=== PATIENT | male | born 1975 | race American Indian/Alaskan Native ===

== ENCOUNTER 2022-05-22 11:09 | Emergency (ER) | payer SELFPAY ==
[2022-05-22] MEDS ORDERED: KETOROLAC 10 MG TAB PO ONE ×2 (12:05→15:00)
[2022-05-22] MEDS ORDERED: predniSONE 20 MG TAB PO ONE ×2 (12:05→15:00)
--- NOTE | 2022-05-22 12:10 | Emergency Department Report ---
ED ENT HPI - General Chief complaint: Earache Stated complaint: EAR INFECTION Time Seen by Provider: 05/22/22 12:03 Source: patient Mode of arrival: Ambulatory Limitations: No Limitations - History of Present Illness Initial comments: 46-year-old black male with a past medical history of asthma presents to the emergency department for evaluation of few day history of worsening left ear pain. He states that he has pain when he touches his ear and has had drainage from his ear also. MD complaint: ear pain -: Gradual, days(s) (2-3) Location: L ear Severity: severe Severity scale (0 -10): 8 Quality: aching Consistency: constant Worsens with: other (touch) - Related Data Previous Rx's Medication Instructions Recorded Last Taken Type Albuterol Mdi (or & Nicu Only) 2 puff IH QID PRN #1 inhalation 12/01/18 Unknown Rx [ProAir HFA Inhaler] Ciprofloxacin HCl/Dexameth 2 drop OTIC QID #7.5 ml 05/22/22 Unknown Rx [Ciprodex Otic Suspension] Allergies Allergy/AdvReac Type Severity Reaction Status Date / Time sulfamethoxazole Allergy Swelling Verified 12/01/18 11:18 [From Bactrim] trimethoprim [From Bactrim] Allergy Swelling Verified 12/01/18 11:18 ED Dental HPI - General Chief complaint: Earache Stated complaint: EAR INFECTION Time Seen by Provider: 05/22/22 12:03 Source: patient Mode of arrival: Ambulatory Limitations: No Limitations - History of Present Illness -: days(s) - Related Data Previous Rx's Medication Instructions Recorded Last Taken Type Albuterol Mdi (or & Nicu Only) 2 puff IH QID PRN #1 inhalation 12/01/18 Unknown Rx [ProAir HFA Inhaler] Ciprofloxacin HCl/Dexameth 2 drop OTIC QID #7.5 ml 05/22/22 Unknown Rx [Ciprodex Otic Suspension] Allergies Allergy/AdvReac Type Severity Reaction Status Date / Time sulfamethoxazole Allergy Swelling Verified 12/01/18 11:18 [From Bactrim] trimethoprim [From Bactrim] Allergy Swelling Verified 12/01/18 11:18 ED Review of Systems ROS: Stated complaint: EAR INFECTION Other details as noted in HPI Comment: All other systems reviewed and negative Constitutional: denies: chills, fever Eyes: denies: eye pain, eye discharge ENT: ear pain Respiratory: denies: shortness of breath Cardiovascular: denies: chest pain, palpitations Gastrointestinal: denies: abdominal pain, nausea, vomiting Musculoskeletal: denies: back pain Neurological: denies: headache, weakness ED Past Medical Hx - Past Medical History Hx Asthma: Yes - Social History Smoking Status: Never Smoker - Medications Home Medications: Home Medications Medication Instructions Recorded Confirmed Last Taken Type Albuterol Mdi (or & Nicu Only) 2 puff IH QID PRN #1 inhalation 12/01/18 Unknown Rx [ProAir HFA Inhaler] Ciprofloxacin HCl/Dexameth 2 drop OTIC QID #7.5 ml 05/22/22 Unknown Rx [Ciprodex Otic Suspension] ED Physical Exam - General Limitations: No Limitations General appearance: alert, in no apparent distress - Head Head exam: Present: atraumatic, normocephalic - Eye Eye exam: Present: normal appearance. Absent: conjunctival injection - Expanded ENT Exam Expanded TM/Canal exam: Canal Discharge: Left TM, Canal Tenderness: Left TM (edema noted to left ear canal with purulent drainage noted. ) Mouth exam: Present: normal external inspection Throat exam: Positive: normal inspection - Neck Neck exam: Present: normal inspection. Absent: lymphadenopathy - Respiratory Respiratory exam: Absent: respiratory distress - Cardiovascular Cardiovascular Exam: Present: regular rate - GI/Abdominal GI/Abdominal exam: Absent: distended - Extremities Exam Extremities exam: Present: normal inspection, normal capillary refill - Back Exam Back exam: Present: normal inspection - Neurological Exam Neurological exam: Present: alert, oriented X3 - Psychiatric Psychiatric exam: Present: normal affect, normal mood - Skin Skin exam: Present: warm, dry, intact, normal color ED Course Vital Signs 05/22/22 05/22/22 11:59 16:25 Temperature 98.4 F 98.8 F Pulse Rate 74 84 Respiratory 14 18 Rate Blood Pressure 143/95 Blood Pressure 160/97 [Right] O2 Sat by Pulse 99 98 Oximetry ED Medical Decision Making - Medical Decision Making 46-year-old black male with a past medical history of asthma presents to the emergency department for evaluation of few day history of worsening left ear pain. He states that he has pain when he touches his ear and has had drainage from his ear also. Physical exam consistent with left otitis externa. He was given one time dose of prednisone and toradol in ED then discharged home with ciprodex to use as directed. He is advised with follow up with pcp or ent if no improvement and return to ed as needed. He verbalized understanding of and agreement with plan of care. Critical care attestation.: If time is entered above; I have spent that time in minutes in the direct care of this critically ill patient, excluding procedure time. ED Disposition Clinical Impression: Left otitis externa Qualifiers: Otitis externa type: unspecified type Chronicity: acute Qualified Code(s): H60.502 - Unspecified acute noninfective otitis externa, left ear Disposition: HOME / SELF CARE / HOMELESS Is pt being admited?: No Does the pt Need Aspirin: No Condition: Stable Instructions: Otitis Externa, [id number], Ear Drops, Adult, [id number] Additional Instructions: Use eardrops as directed. Follow-up with your primary care provider or ear nose and throat doctor if no improvement or worsening symptoms. Return to the emergency department as needed. Prescriptions: Ciprofloxacin HCl/Dexameth [Ciprodex Otic Suspension] 2 drop OTIC QID #7.5 ml Referrals: PRIMARY MD MATEO [Primary Care Provider] - 3-5 Days BRYANT REGALADO MD [Staff Physician] - 3-5 Days OLEGARIO SALINAS MD [Referring] - 3-5 Days Forms: Work/School Release Form(ED) Time of Disposition: 12:17
[2022-05-22 16:26] VITALS: BP 160/97
== END 2022-05-22 16:25 | disposition home or self-care (01) ==
LOC: ED 11:09
DX: H60.92 Unspecified otitis externa, left ear (principal); J45.909 Unspecified asthma, uncomplicated; Z88.2 Allergy status to sulfonamides; Z88.8 Allergy status to other drugs, medicaments and biological substances; Z79.899 Other long term (current) drug therapy
CPT/HCPCS: 99282

== ENCOUNTER 2022-07-03 13:45 | Emergency (ER) | payer SELFPAY ==
[2022-07-03 16:06] VITALS: BP 144/96
--- NOTE | 2022-07-03 16:09 | Emergency Department Report ---
ED ENT HPI - General Chief complaint: Extremity Problem,Nontraumatic Stated complaint: FACE SWOLLEN Time Seen by Provider: 07/03/22 16:06 Source: patient Mode of arrival: Ambulatory Limitations: No Limitations - History of Present Illness Initial comments: 46 yo black male presents to ed for evaluation of left facial pain and swelling for the past few days. He states that he has had thacker and runny nose also. He denies fever. - Related Data Previous Rx's Medication Instructions Recorded Last Taken Type Albuterol Mdi (or & Nicu Only) 2 puff IH QID PRN #1 inhalation 12/01/18 Unknown Rx [ProAir HFA Inhaler] Ciprofloxacin HCl/Dexameth 2 drop OTIC QID #7.5 ml 05/22/22 Unknown Rx [Ciprodex Otic Suspension] Amoxicillin [Amoxicillin TAB] 875 mg PO BID 7 Days #14 tab 07/03/22 Unknown Rx methylPREDNISolone [Medrol 4MG 4 mg PO DAILY #1 pack 07/03/22 Unknown Rx DOSEPAK (21 tabs)] Allergies Allergy/AdvReac Type Severity Reaction Status Date / Time sulfamethoxazole Allergy Swelling Verified 07/03/22 16:07 [From Bactrim] trimethoprim [From Bactrim] Allergy Swelling Verified 07/03/22 16:07 ED Dental HPI - General Chief complaint: Extremity Problem,Nontraumatic Stated complaint: FACE SWOLLEN Time Seen by Provider: 07/03/22 16:06 Source: patient Mode of arrival: Ambulatory Limitations: No Limitations - Related Data Previous Rx's Medication Instructions Recorded Last Taken Type Albuterol Mdi (or & Nicu Only) 2 puff IH QID PRN #1 inhalation 12/01/18 Unknown Rx [ProAir HFA Inhaler] Ciprofloxacin HCl/Dexameth 2 drop OTIC QID #7.5 ml 05/22/22 Unknown Rx [Ciprodex Otic Suspension] Amoxicillin [Amoxicillin TAB] 875 mg PO BID 7 Days #14 tab 07/03/22 Unknown Rx methylPREDNISolone [Medrol 4MG 4 mg PO DAILY #1 pack 07/03/22 Unknown Rx DOSEPAK (21 tabs)] Allergies Allergy/AdvReac Type Severity Reaction Status Date / Time sulfamethoxazole Allergy Swelling Verified 07/03/22 16:07 [From Bactrim] trimethoprim [From Bactrim] Allergy Swelling Verified 07/03/22 16:07 ED Review of Systems ROS: Stated complaint: FACE SWOLLEN Other details as noted in HPI ED Past Medical Hx - Past Medical History Hx Asthma: Yes - Social History Smoking Status: Never Smoker - Medications Home Medications: Home Medications Medication Instructions Recorded Confirmed Last Taken Type Albuterol Mdi (or & Nicu Only) 2 puff IH QID PRN #1 inhalation 12/01/18 Unknown Rx [ProAir HFA Inhaler] Ciprofloxacin HCl/Dexameth 2 drop OTIC QID #7.5 ml 05/22/22 Unknown Rx [Ciprodex Otic Suspension] Amoxicillin [Amoxicillin TAB] 875 mg PO BID 7 Days #14 tab 07/03/22 Unknown Rx methylPREDNISolone [Medrol 4MG 4 mg PO DAILY #1 pack 07/03/22 Unknown Rx DOSEPAK (21 tabs)] ED Physical Exam - General Limitations: No Limitations ED Course Vital Signs 07/03/22 16:03 Temperature 98.8 F Pulse Rate 79 Respiratory 16 Rate Blood Pressure 144/96 [Right] O2 Sat by Pulse 99 Oximetry Critical care attestation.: If time is entered above; I have spent that time in minutes in the direct care of this critically ill patient, excluding procedure time. ED Disposition Clinical Impression: Acute bacterial rhinosinusitis Disposition: 01 HOME / SELF CARE / HOMELESS Is pt being admited?: No Does the pt Need Aspirin: No Condition: Stable Instructions: Antibiotic Medicine, Adult, [id number], Sinusitis, Adult, [id number] Additional Instructions: Take medications as prescribed. Follow-up with your primary care provider if no improvement or worsening symptoms. Return to the emergency department as needed. Prescriptions: Amoxicillin [Amoxicillin TAB] 875 mg PO BID 7 Days #14 tab methylPREDNISolone [Medrol 4MG DOSEPAK (21 tabs)] 4 mg PO DAILY #1 pack Referrals: BRYANT REGALADO MD [Staff Physician] - 3-5 Days Forms: Work/School Release Form(ED) Time of Disposition: 16:09
== END 2022-07-03 17:00 | disposition home or self-care (01) ==
LOC: ED 13:45
DX: J01.80 Other acute sinusitis (principal); B96.89 Other specified bacterial agents as the cause of diseases classified elsewhere; J45.909 Unspecified asthma, uncomplicated; Z88.2 Allergy status to sulfonamides; Z88.8 Allergy status to other drugs, medicaments and biological substances; Z79.899 Other long term (current) drug therapy
CPT/HCPCS: 99281